=== PATIENT | male | born 1995 ===

== ENCOUNTER 2019-01-12 02:41 | Emergency (ER) | payer BC ==
[2019-01-12 03:00] VITALS: TEMP 97.7
--- NOTE | 2019-01-12 03:16 | ED PDOC ---
Arrival/HPI - General Chief Complaint: Psychiatric Evaluation Time Seen by Provider: 01/12/19 02:46 Historian: EMS - History of Present Illness Narrative History of Present Illness (Text): 01/12/19 03:18 A 23 year old male brought in by EMS to the emergency department for intoxication and SI. Per EMS, patient told police he wanted to hang himself with a belt. Also, EMS mention patient was arguing with spouse. Limited HPI and ROS secondary to patients intoxicated state. Past Medical History - Provider Review Nursing Documentation Reviewed: Yes - Infectious Disease Hx of Infectious Diseases: None - Psychiatric Hx Substance Use: No Family/Social History - Physician Review Nursing Documentation Reviewed: Yes Family/Social History: No Known Family HX Smoking Status: Never Smoked Hx Alcohol Use: Yes Frequency of alcohol use: Socially Hx Substance Use: No Allergies/Home Meds Allergies/Adverse Reactions: Allergies No Known Allergies Allergy (Verified 01/12/19 03:00) Home Medications: Home Meds Medication Instructions Recorded Confirmed Levocetirizine Dihydrochloride 5 mg PO DAILY 01/12/19 01/12/19 [Xyzal] Review of Systems - Review of Systems Systems not reviewed;Unavailable: Intoxicated Physical Exam - Physical Exam Narrative Physical Exam (Text): Gen: VS reviewed, alert, well developed, well nourished, intoxicated, mild distress Eye: EOMI, PERRL ENT: normal pharynx. Neck: no JVD, supple, no adenopathy CV: regular rate, regular rhythm, no rubs,no murmur, S1, S2 Pulm: no distress, clear to auscultation, no wheeze, no rhonchi, breath sounds equal, no rales Abd: soft, nontender, no guarding, no rebound, no rigidity Ext: no edema Skin: good color, no rash, no cyanosis Psych: responds appropriately to questions, normal affect Neuro: oriented x3, CN2-12 intact grossly, motor intact, sensation intact Vital Signs Reviewed: Yes Vital Signs Temp Pulse Resp BP Pulse Ox 01/12/19 02:50 97.7 F 68 16 130/75 98 Temperature: Afebrile Blood Pressure: Normal Pulse: Regular Respiratory Rate: Normal Appearance: Positive for: Other (intoxicated) Pain Distress: None Mental Status: Positive for: Alert and Oriented X 3 Medical Decision Making ED Course and Treatment: 01/12/19 03:22 Impression: 23 year old male with suicidal ideation and intoxication. Plan: EKG Chest X-Ray Labs Urinalysis Reassess and disposition Progress Notes: 01/12/19 04:45 patient is medically stable for psych eval, admit, transfer if needed 01/12/19 05:24 patient seen by PES and has been cleared for discharge. patient does not need acute inpt tx, does not appear to be a threat to himself or others. discharge acute stress disorder. - RAD Interpretation Radiology Orders: 01/12/19 03:06 CHEST ONE VIEW [RAD] Stat - EKG Interpretation EKG Interpretation (Text): ekg my read: nser at 74 bpm, nml qrs, nml axis, no acute sttw abn Interpreted by ED Physician: Yes - Scribe Statement The provider has reviewed the documentation as recorded by the Scribe Epifanio Frost All medical record entries made by the Scribe were at my direction and personally dictated by me. I have reviewed the chart and agree that the record accurately reflects my personal performance of the history, physical exam, medical decision making, and the department course for this patient. I have also personally directed, reviewed, and agree with the discharge instructions and disposition. Disposition/Present on Arrival - Present on Arrival Any Indicators Present on Arrival: No History of DVT/PE: No History of Uncontrolled Diabetes: No Urinary Catheter: No History of Decub. Ulcer: No History Surgical Site Infection Following: None - Disposition Have Diagnosis and Disposition been Completed?: Yes Diagnosis: Stress disorder, acute Disposition: HOME/ ROUTINE Disposition Time: 05:31 Patient Plan: Discharge Condition: STABLE Discharge Instructions (ExitCare): Stress Additional Instructions: return for any problems or concerns. Forms: [employer] ([employer])
[2019-01-12 03:39] LABS: BASO # 0.05 K/mm3 (0.0-2.0); BASO % 0.8 % (0.0-3.0); EOS # 0.4 (0.0-0.7); EOS % 5.8 % (1.5-5.0); HEMOGLOBIN 14.8 g/dL (14.0-18.0); LYMPH # 2.7 (1.2-3.4); LYMPH % 41.2 % (22.0-35.0); MEAN CELL VOLUME 91.5 fl (80.0-105.0); MEAN CORPUSCULAR HEMOGLOBIN 30.7 pg (25.0-35.0); MEAN CORPUSCULAR HGB CONC 33.6 g/dl (31.0-37.0); MEAN PLATELET VOLUME 8.8 fl (7.0-11.0); MONO # 0.3 (0.1-0.6); MONO % 4.4 % (1.0-6.0); RBC 4.82 10^6/uL (3.5-6.1); RED CELL DISTRIBUTION WIDTH 12.6 % (11.5-14.5); WHITE BLOOD COUNT 6.5 10^3/uL (4.5-11.0)
[2019-01-12 04:11] LABS: ACETAMINOPHEN < 10.0 ug/ml (10.0-20.0); SALICYLATE < 1 mg/dL (2.0-20.0)
[2019-01-12 04:13] LABS: ALB/GLOB RATIO 1.6 (1.1-1.8); ALBUMIN 4.8 g/dL (3.0-4.8); ALT/SGPT 23 U/L (7-56); AST/SGOT 31 U/L (17-59); BLOOD UREA NITROGEN 11 mg/dL (7-21); CALCIUM 9.2 mg/dL (8.4-10.5); GFR NON-AFRICAN AMERICAN > 60
[2019-01-12 04:24] LABS: URINE BILIRUBIN NEGATIVE (NEGATIVE); URINE BLOOD NEGATIVE (NEGATIVE); URINE GLUCOSE (UA) NEGATIVE (NEGATIVE); URINE LEUKOCYTE ESTERASE NEGATIVE Leu/uL (NEGATIVE); URINE PROTEIN NEGATIVE mg/dL (<30 mg/dL); URINE UROBILINOGEN 0.2 E.U./dL (<1 E.U./dL)
[2019-01-12 04:30] LABS: URINE APPEARANCE CLEAR (CLEAR); URINE COLOR YELLOW (YELLOW)
[2019-01-12 04:33] LABS: BARBITURATES, UR NEGATIVE (NEGATIVE); BENZODIAZEPINES, UR NEGATIVE (NEGATIVE); OPIATES, UR NEGATIVE (NEGATIVE); PHENCYCLIDINE, UR NEGATIVE (NEGATIVE)
[2019-01-12 05:55] VITALS: BP 121/68; PULSE 71; RESP 15; O2SAT 100
--- NOTE | 2019-01-12 10:44 | RAD ---
Date of service: 01/12/2019 PROCEDURE: CHEST RADIOGRAPH, 1 VIEW HISTORY: medical screening COMPARISON: None available. FINDINGS: LUNGS: Clear. PLEURA: No pneumothorax or pleural fluid seen. CARDIOVASCULAR: No aortic atherosclerotic calcification present. Normal. OSSEOUS STRUCTURES: No significant abnormalities. VISUALIZED UPPER ABDOMEN: Normal. OTHER FINDINGS: None. IMPRESSION: No active disease.
--- NOTE | 2019-01-12 19:12 | CARD ---
APPROVED REPORT Date of service: 01/12/2019 EKG Measurement Heart [id number] <Conclusion> Normal sinus rhythm Vertical axis Normal ECG for age and sex
== END 2019-01-12 05:30 | disposition home or self-care (01) ==
LOC: ED 02:41
DX: F43.9 Reaction to severe stress, unspecified (principal)
CPT/HCPCS: 71045; 80053; 81003; 85025; 90791; 93005; 99283; G0480